=== PATIENT | female | born 1980 | race Caucasian/White ===

== ENCOUNTER 2022-03-04 07:33 | Outpatient (CLI) | payer OTHER, SELFPAY ==
[2022-03-04 18:46] LABS: Basophils Absolute Auto 0.1 K/mm3 (0.0-0.1); Basophils Percent Auto 1.2 % (0.2-1.2); Eosinophils Absolute Auto 0.4 K/mm3 (0-0.3); Eosinophils Percent Auto 5.8 % (0-4.4); Hematocrit 43.7 % (37.0-47.0); Hemoglobin 13.5 g/dL (12.0-15.0); Immature Granulocyte Absolute 0.02 K/mm3 (0.00-0.031); Immature Granulocyte Percent A 0.3 % (0-0.5); Lymphocytes Absolute Auto 2.98 K/mm3 (0.9-3.2); Lymphocytes Percent Auto 39.9 % (18.3-44.2); Mean Corpuscular HGB Conc 30.9 g/dl (32-36); Mean Corpuscular Hemoglobin 28.1 pg (26-34); Mean Platelet Volume 10.1 fl (7.4-10.4); Monocytes Absolute Auto 0.4 K/mm3 (0.1-0.6); Monocytes Percent Auto 5.6 % (2.6-8.5); Neutrophils Absolute Auto 3.5 K/mm3 (1.3-6.7); Neutrophils Percent Auto 47.2 % (45.5-73.1); Platelet Count Result 320 k/mm3 (150-375); Red Cell Distribution Width 13.2 % (11.5-14.5); White Blood Count 7.5 K/mm3 (4.5-10.0)
[2022-03-04 19:05] LABS: Alanine Aminotransferase 20 U/L (6-35); Albumin Level 4.4 g/dL (3.5-5.1); Alkaline Phosphatase 66 U/L (38-126); Anion Gap 11 mmol/L (8-16); Aspartate Amino Transferase 49 U/L (14-36); Bilirubin,Total 0.4 mg/dL (0.2-1.3); Blood Urea Nitrogen 10 mg/dL (7-17); Calcium 9.1 mg/dL (8.4-10.2); Carbon Dioxide 25 mmol/L (22-30); Chloride 103 mmol/L (98-107); Cholesterol 213 mg/dL (0-200); Estimated Glomerular Filt Rate > 60; Glucose 99 mg/dL (65-110); HDL Direct 37 mg/dL; Potassium 4.4 mmol/L (3.4-5.0); Sodium 139 mmol/L (137-145); Triglycerides 521 mg/dL (<150)
[2022-03-04 19:16] LABS: LDL Cholesterol Direct 68 mg/dL
[2022-03-04 20:23] LABS: Vitamin D 25 Hydroxy 50.1 ng/mL
== END 2022-03-04 07:34 | disposition home or self-care (01) ==
LOC: ANHBWCLAB 07:35
PROVIDERS: PCP Family Medicine; Visit Provider Family Medicine
DX: Z00.00 Encounter for general adult medical examination without abnormal findings (principal); M10.9 Gout, unspecified
CPT/HCPCS: 36415; 80053; 80061; 82306; 84550; 85025

== ENCOUNTER 2022-03-21 09:07 | Outpatient (CLI) | payer OTHER, SELFPAY ==
--- NOTE | 2022-03-21 09:21 | EST_ITS ---
Patient Info Name: Yadi Cunningham Age: 41 years : 1980 Gender: Female Ht: 70 in Wt: 282 lbs BSA: 2.57 m2 Exam Date: 03/21/2022 10:03 AM Exam Location: [facility] Stress Patient Status: Outpatient Admit Date: 03/21/2022 Staff Ordering Physician: Osito Benitez MD Attending Provider: Osito Benitez MD Exercise Technologist: Shanthi Mars RDCS Exercise Physician: Jasper Sullivan DO Exam Type: CA stress test treadmill Study Info A treadmill exercise stress test was performed. Summary 1. 1. Negative Jonathan exercise stress test for ischemic ST changes by ECG criteria. 2. 2. Reduced functional capacity, achieving 7 METs of workload. 3. 3. Baseline hypertension. 4. 4. Rapid HR response to exercise. 5. 5. Appropriate HR recovery at 1 minute post exercise. 6. 6. No imaging with stress testing. 7. 7. Patient informed of the above results. Protocol: Jonathan Stress ECG Details Stage: REST Duration (min): 5 min : 45 sec Speed (mph): 0.0 Grade (%): 0 HR (bpm): 95 SBP (mmHg): 164 DBP (mmHg): 79 METS: --- Stage: REST Duration (min): 11 min : 8 sec Speed (mph): 0.0 Grade (%): 0 HR (bpm): 106 SBP (mmHg): 164 DBP (mmHg): 79 METS: --- Stage: STAGE 1 Duration (min): 1 min : 0 sec Speed (mph): 1.7 Grade (%): 10 HR (bpm): 131 SBP (mmHg): 164 DBP (mmHg): 79 METS: --- Stage: STAGE 1 Duration (min): 2 min : 0 sec Speed (mph): 1.7 Grade (%): 10 HR (bpm): 151 SBP (mmHg): 164 DBP (mmHg): 79 METS: --- Stage: STAGE 1 Duration (min): 3 min : 0 sec Speed (mph): 1.7 Grade (%): 10 HR (bpm): 154 SBP (mmHg): 195 DBP (mmHg): 75 METS: --- Stage: STAGE 2 Duration (min): 1 min : 0 sec Speed (mph): 2.5 Grade (%): 12 HR (bpm): 165 SBP (mmHg): 195 DBP (mmHg): 75 METS: --- Stage: STAGE 2 Duration (min): 1 min : 41 sec Speed (mph): 2.5 Grade (%): 12 HR (bpm): 173 SBP (mmHg): 195 DBP (mmHg): 75 METS: --- Stage: RECOVERY Duration (min): 0 min : 18 sec Speed (mph): 0.0 Grade (%): 0 HR (bpm): 172 SBP (mmHg): 147 DBP (mmHg): 76 METS: --- Stage: RECOVERY Duration (min): 1 min : 18 sec Speed (mph): 0.0 Grade (%): 0 HR (bpm): 155 SBP (mmHg): 174 DBP (mmHg): 68 METS: --- Stage: RECOVERY Duration (min): 2 min : 18 sec Speed (mph): 0.0 Grade (%): 0 HR (bpm): 150 SBP (mmHg): 174 DBP (mmHg): 68 METS: --- Stage: RECOVERY Duration (min): 3 min : 18 sec Speed (mph): 0.0 Grade (%): 0 HR (bpm): 127 SBP (mmHg): 202 DBP (mmHg): 48 METS: --- Stage: RECOVERY Duration (min): 4 min : 18 sec Speed (mph): 0.0 Grade (%): 0 HR (bpm): 119 SBP (mmHg): 202 DBP (mmHg): 48 METS: --- Stage: RECOVERY Duration (min): 5 min : 18 sec Speed (mph): 0.0 Gra
== END 2022-03-21 09:08 | disposition home or self-care (01) ==
PROVIDERS: PCP Family Medicine; Visit Provider Family Medicine
DX: I10 Essential (primary) hypertension (principal); Z82.49 Family history of ischemic heart disease and other diseases of the circulatory system
CPT/HCPCS: 93017

== ENCOUNTER 2023-01-20 07:42 | Outpatient (CLI) | payer OTHER, SELFPAY ==
[2023-01-20 19:42] LABS: Basophils Absolute Auto 0.1 K/mm3 (0.0-0.1); Basophils Percent Auto 0.8 % (0.2-1.2); Eosinophils Absolute Auto 0.5 K/mm3 (0-0.3); Eosinophils Percent Auto 5.9 % (0-4.4); Hemoglobin 13.5 g/dL (12.0-15.0); Immature Granulocyte Absolute 0.02 K/mm3 (0.00-0.031); Immature Granulocyte Percent A 0.3 % (0-0.5); Lymphocytes Absolute Auto 3.04 K/mm3 (0.9-3.2); Lymphocytes Percent Auto 39.5 % (18.3-44.2); Mean Corpuscular HGB Conc 30.7 g/dl (32-36); Mean Corpuscular Hemoglobin 29.3 pg (26-34); Mean Corpuscular Volume 95.7 fl (80-100); Mean Platelet Volume 9.9 fl (7.4-10.4); Monocytes Absolute Auto 0.5 K/mm3 (0.1-0.6); Neutrophils Absolute Auto 3.7 K/mm3 (1.3-6.7); Neutrophils Percent Auto 47.5 % (45.5-73.1); Platelet Count Result 314 k/mm3 (150-375); Red Cell Distribution Width 14.5 % (11.5-14.5); White Blood Count 7.7 K/mm3 (4.5-10.0)
[2023-01-20 19:55] LABS: Alanine Aminotransferase 29 U/L (6-35); Albumin Level 4.5 g/dL (3.5-5.1); Alkaline Phosphatase 55 U/L (38-126); Anion Gap 8 mmol/L (8-16); Aspartate Amino Transferase 42 U/L (14-36); Bilirubin,Total 0.4 mg/dL (0.2-1.3); Blood Urea Nitrogen 14 mg/dL (7-17); Calcium 9.2 mg/dL (8.4-10.2); Carbon Dioxide 26 mmol/L (22-30); Chloride 106 mmol/L (98-107); Cholesterol 226 mg/dL (0-200); Estimated Glomerular Filt Rate > 60; Glucose 90 mg/dL (65-110); HDL Direct 39 mg/dL; Potassium 4.3 mmol/L (3.4-5.0); Sodium 140 mmol/L (137-145); Triglycerides 380 mg/dL (<150); Uric Acid 2.9 mg/dL (2.5-7.5)
[2023-01-20 20:06] LABS: LDL Cholesterol Direct 113 mg/dL
[2023-01-20 20:19] LABS: Vitamin D 25 Hydroxy 31.3 ng/mL
[2023-01-20 20:52] LABS: Hemoglobin A1C 5.6 % (<5.7)
[2023-01-20 21:01] LABS: Free T4 Free Thyroxine 1.05 ng/mL (0.78-2.19)
[2023-01-23 12:52] LABS: Insulin Level Total 11.5 uIU/mL (<=19.6)
== END 2023-01-20 07:43 | disposition home or self-care (01) ==
PROVIDERS: PCP Family Medicine; Visit Provider Nurse Practitioner Adult Health
DX: Z51.81 Encounter for therapeutic drug level monitoring (principal); E66.9 Obesity, unspecified; I10 Essential (primary) hypertension; M10.9 Gout, unspecified; R74.01 Elevation of levels of liver transaminase levels
CPT/HCPCS: 36415; 80048; 80061; 80076; 82306; 83036; 83525; 84439; 84443; 84550; 85025

== ENCOUNTER 2023-10-22 07:12 | Outpatient (CLI) | payer OTHER, SELFPAY ==
[2023-10-22 19:20] LABS: Alanine Aminotransferase 21 U/L (6-35); Albumin Level 4.4 g/dL (3.5-5.1); Alkaline Phosphatase 50 U/L (38-126); Anion Gap 9 mmol/L (4-12); Aspartate Amino Transferase 54 U/L (14-36); Bilirubin,Total 0.5 mg/dL (0.2-1.3); Blood Urea Nitrogen 16 mg/dL (7-17); Calcium 9.7 mg/dL (8.4-10.2); Carbon Dioxide 25 mmol/L (22-30); Chloride 104 mmol/L (98-107); Cholesterol 204 mg/dL (0-200); Estimated Glomerular Filt Rate 60; Glucose 100 mg/dL (65-110); HDL Direct 30 mg/dL; Potassium 4.2 mmol/L (3.4-5.0); Sodium 138 mmol/L (137-145); Triglycerides 299 mg/dL (<150); Uric Acid 2.8 mg/dL (2.5-7.5)
[2023-10-22 19:31] LABS: LDL Cholesterol Direct 130 mg/dL
[2023-10-22 19:34] LABS: Hematocrit 45.2 % (37.0-47.0); Hemoglobin 13.7 g/dL (12.0-15.0); Mean Corpuscular HGB Conc 30.3 g/dl (32-36); Mean Corpuscular Hemoglobin 29.5 pg (26-34); Mean Corpuscular Volume 97.2 fl (80-100); Mean Platelet Volume 9.7 fl (7.4-10.4); Platelet Count Result 356 k/mm3 (150-375); Red Blood Count 4.65 M/mm3 (4.2-5.4); Red Cell Distribution Width 13.5 % (11.5-14.5); White Blood Count 7.7 K/mm3 (4.5-10.0)
[2023-10-22 19:49] LABS: Hemoglobin A1C 5.7 % (<5.7)
== END 2023-10-22 07:13 | disposition home or self-care (01) ==
PROVIDERS: PCP Nurse Practitioner Adult Health; Visit Provider Nurse Practitioner Adult Health
DX: R73.9 Hyperglycemia, unspecified (principal); I10 Essential (primary) hypertension; M10.9 Gout, unspecified; E78.1 Pure hyperglyceridemia
CPT/HCPCS: 36415; 80053; 80061; 83036; 84550; 85027